=== PATIENT | female | born 1970 | race Caucasian/White ===

== ENCOUNTER 2019-12-10 21:47 | Emergency (ER) | payer OTHER, SELFPAY ==
[2019-12-10] VITALS (8 sets, daily range): BP systolic 141–160; BP diastolic 86–102; PULSE 88–99; RESP 15–21; TEMP 35.6–36.3; O2SAT 97–99
--- NOTE | ~2019-12-10 | XR_ITS ---
XR shoulder RT min 2V DATE: 12/10/2019 23:34 INDICATION: Anterior glenohumeral joint dislocation TECHNIQUE: 2 views COMPARISON: 12/10/2019 prereduction radiographs FINDINGS: There is reduction of the anterior dislocation at the right glenohumeral joint. No fracture is evident. IMPRESSION: Reduction of anterior glenohumeral joint dislocation Reviewed, dictated and finalized at location A.
--- NOTE | ~2019-12-10 | XR_ITS ---
XR shoulder RT min 2V DATE: 12/10/2019 22:37 INDICATION: Extreme shoulder pain, popping TECHNIQUE: 4 views COMPARISON: 09/12/2013 right shoulder 09/28/2013 right shoulder MRI examination FINDINGS: The humeral head is anteriorly dislocated in subcoracoid position. Normal alignment at the acromioclavicular joint, with degenerative changes. No apparent fracture. No apparent bone destruction or periosteal reaction. IMPRESSION: Anterior dislocation at right glenohumeral joint Reviewed, dictated and finalized at location A.
--- NOTE | 2019-12-10 22:10 | ED.UPPEXIN ---
HPI - Extremity Injury (Upper) General Chief Complaint: Extremity Injury, Upper Stated Complaint: fall Time Seen by Provider: 12/10/19 22:00 History of Present Illness HPI narrative: Patient is a 49-year-old female who presents ER with acute right shoulder pain. Patient was trying to swat a fly when she fell to pain in her shoulder and now is unable perform range of motion. She has some mild tingling in her right fifth digit. Has not had a dislocation previously. Did not fall or have any additional trauma to the shoulder. Pain is improved by not moving. Had some yogurt at 8 PM. Related Data Home Medications Medication Instructions Recorded Confirmed cetirizine 10 mg capsule 10 mg PO DAILY 04/10/19 cyclobenzaprine 10 mg tablet See Rx Instructions PO TID 04/10/19 ergocalciferol (vitamin D2) 1,250 1,250 mcg PO WEEKLY 04/10/19 mcg (50,000 unit) capsule hydroxychloroquine 200 mg tablet 200 mg PO BID 04/10/19 levonorgestrel 20 mcg/24 hours (5 1 device I-UTERINE ONCE 04/10/19 yrs) 52 mg intrauterine device meloxicam 15 mg tablet 15 mg PO DAILY 04/10/19 nortriptyline 10 mg capsule 10 mg PO DAILY 10/09/19 tramadol 50 mg tablet 50 mg PO Q6H PRN 10/09/19 valerian root 450 mg capsule 2,100 mg PO .QD cap 10/09/19 Allergies Allergy/AdvReac Type Severity Reaction Status Date / Time bee venom protein (honey bee) Allergy Unknown Unknown Verified 10/09/19 10:43 Review of Systems Constitutional: Constitutional: Denies chills and Denies fever(s) Musculoskeletal: Musculoskeletal: Denies back pain, Reports arthralgias and Denies joint swelling Neurologic: Denies focal weakness and Reports numbness PMFSH Surgical History Surgical History (Updated 04/10/19 @ 11:18 by Calli Christopher NP) Previous section (~2005) Social History Social History Smoking status: Never smoker Alcohol intake: current Gender identity (if verbalized by the patient): Female Exam Narrative: Exam Narrative: GENERAL: Well-appearing, well-nourished, and in no acute distress. HEAD: Normocephalic, atraumatic. ENT: Mucous membranes moist. CHEST: Clear to auscultation. No respiratory distress. HEART: Regular rate and rhythm. Normal peripheral pulses. EXTREMITIES: Deformity right shoulder, c/w dislocation. No clavicular/elbow/wrist pain on the right. Normal pulses. SKIN: Warm, dry, no rash. NEURO: Alert and oriented x3. PSYCH: Normal mood and affect. Course Vital Signs Vital signs: Vital Signs Temperature 96.0 F L 12/10/19 21:49 Pulse Rate 99 12/10/19 21:49 Respiratory Rate 21 H 12/10/19 21:49 Blood Pressure 147/102 H 12/10/19 21:49 Pulse Oximetry 98 12/10/19 21:49 Temperature 97.3 F L 12/10/19 23:36 Pulse Rate 89 12/10/19 23:54 Respiratory Rate 19 12/10/19 23:54 Blood Pressure 153/96 H 12/10/19 23:54 Pulse Oximetry 98 12/10/19 23:54 Procedures Orthopedic Joint Reduction Joint #1: Orthopedic Joint Reduction Date: 12/10/19 Orthopedic Joint Reduction Time: 23:02 Time Out Performed: Yes Side: right Joint Reduction Location: shoulder Analgesia: procedural sedation Pre-Procedure Neuro Vascular Exam: normal Local Anesthesia: none Shoulder Technique Used (if applicable): external rotation Post-reduction neuro exam: intact Post-reduction vascular: intact Post Reduction X-Ray Obtained: Yes Post Reduction X-Ray Results: reduced Splint Applied: Yes (shoulder immobilizer applied by the physician) Patient Tolerated Procedure: well Procedural Sedation Procedural Sedation #1: Procedural Sedation Date: 12/10/19 Procedural Sedation Time: 23:02 Procedure: right shoulder reduction Provider Performed: sedation and procedure Informed Consent Obtained: yes Equipment in Room: bag and mask, capnography, threat monitoring analyst, crash c
[2019-12-10] MEDS: MORPHINE SULFATE 4 MG/ML INJ IV PUSH (22:12)
--- NOTE | 2019-12-10 23:02 | PC.NURSE ---
manda morales gave 80mg of propofol at this time.
[2019-12-11 00:27] VITALS: BP 154/86; PULSE 79; RESP 19; TEMP 36.3; O2SAT 100
== END 2019-12-11 00:28 | disposition home or self-care (01) ==
PROVIDERS: Emergency Provider Emergency Medicine; PCP Family Medicine
DX: S43.014A Anterior dislocation of right humerus, initial encounter (principal); X50.9XXA Other and unspecified overexertion or strenuous movements or postures, initial encounter
CPT/HCPCS: 23650; 73030; 96374; 99285; A4565; J2270; J2704

== ENCOUNTER 2020-07-25 13:30 | Outpatient (CLI) | payer OTHER, SELFPAY ==
--- NOTE | 2020-07-25 14:09 | ECHO_ITS ---
Patient Info Name: Lesli Hughes Age: 49 years : 1970 Gender: Female Ht: 67 in Wt: 260 lbs BSA: 2.42 m2 HR: 95 bpm BP: 144 / 97 mmHg Technical Quality: Good Exam Date: 07/25/2020 2:21 PM Exam Location: [facility] Patient Status: Outpatient Admit Date: 07/25/2020 Staff Ordering Physician: Woody Cantu DO Top Icer: Rebecca Shepard RDCS Attending Provider: Woody Cantu DO Referring Physician: Pepe FELIX; Exam Type: CA echo doppler color flow Study Info Indications - palpitations Complete two-dimensional, color flow and Doppler transthoracic echocardiogram is performed. Summary 1. Complete two-dimensional, color flow and Doppler transthoracic echocardiogram is performed. 2. Left ventricular chamber dimension is normal. 3. Left ventricular systolic function is normal, estimated at 60-65%. 4. The left ventricular diastolic function is grade I diastolic dysfunction. 5. E/e' 7 is not elevated. 6. No pulmonary hypertension, estimated pulmonary arterial systolic pressure is 25 mmHg. Left Ventricle E/e' 7 is not elevated. Left ventricular chamber dimension is normal. Left ventricular systolic function is normal, estimated at 60-65%. The left ventricular diastolic function is grade I diastolic dysfunction. Right Ventricle Right ventricular chamber dimension is normal. Right ventricular systolic function is normal. Left Atria Left atrial chamber dimension is normal. Right Atria Right atrial chamber dimension is normal. Aortic Valve The aortic valve is trileaflet. There is no aortic valve stenosis. There is no aortic valve regurgitation. Pulmonic Valve There is no pulmonic regurgitation. Mitral Valve There is no mitral valve stenosis. There is no mitral valve regurgitation. Tricuspid Valve There is no tricuspid valve regurgitation. No pulmonary hypertension, estimated pulmonary arterial systolic pressure is 25 mmHg. Pericardium/Pleural There is no pericardial effusion. Inferior Vena Cava Normal inferior vena cava with >50% collapse upon inspiration consistent with normal right atrial pressure, 5 mmHg. Aorta The aortic root size at the sinus of Valsalva is normal. Left Ventricular Outflow Tract Name Value Normal LVOT 2D LVOT Diameter 2.0 cm LVOT Doppler LVOT Peak Gradient 3 mmHg LVOT Mean Gradient 2 mmHg LVOT VTI 17 cm LVOT VTI/AV VTI Ratio 0.9 LVOT Stroke Volume 52 ml LVOT CO 11.6 l/min LVOT CI 4.8 l/min/m2 Pulmonic Valve Name Value Normal PV Doppler PV Peak Gradient 5 mmHg Mitral Valve
== END 2020-07-25 13:31 | disposition home or self-care (01) ==
LOC: ANHCARD 13:32
PROVIDERS: PCP Nurse Practitioner Family; Visit Provider Internal Medicine Cardiovascular Disease
DX: R00.2 Palpitations (principal)
CPT/HCPCS: 93306

== ENCOUNTER 2020-07-28 08:58 | Outpatient (CLI) | payer OTHER, SELFPAY ==
--- NOTE | 2020-08-12 14:59 | WPDHOMESLEEP ---
Sleep Study - Home Unattended Date of Study: 07/28/20 Ordering Provider: Woody Cantu DO Interpreting Provider: Marleny Toro MD Home Sleep Study Type: Watch PAT Height: 1.7 m Weight: 117.934 kg Body Mass Index: 40.7 Neck Circumference (inches): 15.50 [place]: 14 Reason for Sleep Study Excessive daytime sleepiness, restless legs syndrome, palpitations at night History shows that she has sleep apnea and uses an oral device at night Sleep History Lesli Hughes is a 50 year old woman who has significant excessive daytime sleepiness.She frequently snores and occasionally stops breathing at night. She rarely has morning headaches. She never awakens feeling refreshed. She always has excessive daytime sleepiness and occasionally has memory or concentration problems. She began having heart palpitations 3 months ago and was diagnosed with PVCs using an event monitor. Her chest feels tight at times. There is a family history of sleep issues with her mother having sleep apnea which is untreated. Her management technician gives her medications for nighttime pain and restless legs syndrome. she rarely awakens from sleep feeling short of breath and rarely awakens with heartburn, belching or coughing. She occasionally has trouble sleeping with a cold. She rarely wakes up gasping for breath at night or having breathing problems at night witnessed by others. She does not notice her heart pounding or beating irregularly at night although she has noticed this during the day. She frequently falls asleep during the day. She frequently falls asleep in viral interiorly and this happens occasionally while driving. She does not have loss of muscle tone with strong emotion. she occasionally has daytime difficulties due to her excessive sleepiness. She does not feel paralyzed on waking or falling asleep. She rarely has vivid dreamlike scenes upon awakening or falling asleep. She does not feel afraid to go to sleep. She does not have nightmares. She does not remember dreams. She rarely has racing thoughts. She occasionally feels sad or depressed. She rarely has anxiety. She frequently has muscular tension. She frequently notices parts of her body jerking. She occasionally kicks at night. She frequently has crawling and aching feelings in her legs and leg pain during the night. She frequently has morning jaw pain, rarely grinds her teeth during sleep. She frequently is bothered by pain during the day. She rarely is awakened by pain at night. She frequently wakes up feeling stiff in the morning was sore achy muscles and pain in the neck and spine. She has headaches, palpitations, fatigue, memory problems and concentration difficulties. She is depressed. Normal bedtime is 10:00 p.m. falling asleep within 15-30 minutes waking 1 or 2 times at night to go to the bathroom and then is able to return to sleep within 5 minutes. She wakes the morning at 5:30 a.m.. She estimates getting 6 8 hours of sleep at night. On the weekends she goes to bed by 11:00 p.m. and wakes up by 9:00 a.m.. She hits the snooze button for about 30 minutes. She often naps on the weekends. She occasionally feels refreshed after short 10 or 15 minutes nap. She is usually drowsy in the morning for 2 hours sometimes longer. She feels better in the late morning compared to other times of day. Habits: Never smoked tobacco. Caffeine 2 servings daily. Alcohol 1 time per week. No recreational drugs. [facility] Past Medical History Medical History (Updated 08/12/20 @ 15:30 by Marleny Toro MD) Depression Dislocation of right shoulder joint (~12/10/19) Fibromyalgia Follows with rheumatology at [facility] Insulin resistance Ischemic colitis (~2014) MCTD (mixed connective tissue disease) Scoliosis Sleep apnea uses mouth device Systemic lupus Tension headache Vitamin D deficiency Surgical History Surgical History Previous
[2020-08-12 15:18] VITALS: BMI 40.7
== END 2020-07-28 08:59 | disposition home or self-care (01) ==
LOC: ANHCSM 08:59
PROVIDERS: PCP Nurse Practitioner Family; Visit Provider Internal Medicine Cardiovascular Disease
DX: G47.30 Sleep apnea, unspecified (principal)
CPT/HCPCS: 95800

== ENCOUNTER → 2020-08-29 07:27 | Outpatient (CLI) | payer OTHER, SELFPAY ==
[2020-08-29 19:22] LABS: SARS-CoV-2 RNA PCR Negative
== END ==
PROVIDERS: PCP Nurse Practitioner Family; Visit Provider Internal Medicine Gastroenterology
DX: Z01.812 Encounter for preprocedural laboratory examination (principal); Z20.822 Contact with and (suspected) exposure to COVID-19
CPT/HCPCS: C9803; U0003; U0005

== ENCOUNTER 2020-09-01 00:44 | Day surgery (SDC) | payer OTHER, SELFPAY ==
[2020-08-25 13:54] VITALS: BMI 40.7
[2020-09-01 06:42] VITALS: BP 147/93; PULSE 89; RESP 16; TEMP 36.3; O2SAT 97; BMI 40.7
--- NOTE | 2020-09-01 06:47 | WPDANESEPPF ---
Anes - Initial Pre Proc Eval Procedure: Operation Date: 09/01/20 07:30 Proposed Procedures p Screening Colonoscopy - Sung Addison MD Date/Time: 09/01/20 06:47 Surgeon: Sung Addison MD Pre Op Diagnosis: family hx of colon ca, neoplasm screening Patient Data Age: 50 Gender: F Height: 5 ft 7 in Weight: 118 kg Last Vital Signs Temp 36.3 C L 09/01/20 06:42 Pulse 89 09/01/20 06:42 Resp 16 09/01/20 06:42 BP 147/93 H 09/01/20 06:42 Pulse Ox 97 09/01/20 06:42 Allergies Allergy/AdvReac Type Severity Reaction Status Date / Time bee venom protein (honey bee) Allergy Severe Anaphylactic Verified 09/01/20 06:40 Shock Home Medications Medication Instructions Recorded Confirmed Type hydroxychloroquine 200 mg tablet 200 mg PO BID 04/10/19 08/25/20 History levonorgestrel 20 mcg/24 hours (6 1 device I-UTERINE ONCE 04/10/19 08/25/20 History yrs) 52 mg intrauterine device meloxicam 15 mg tablet 15 mg PO DAILY 04/10/19 08/25/20 History valerian root 450 mg capsule 900 mg PO .QD cap 10/09/19 08/25/20 History cyclobenzaprine 10 mg tablet 10 mg PO HS tablet 12/20/19 08/25/20 History levocetirizine 5 mg tablet 5 mg PO DAILY 12/20/19 08/25/20 History tramadol 50 mg tablet 50 mg PO HS tablet 12/20/19 08/25/20 History ergocalciferol (vitamin D2) 50 mcg 50 mcg PO DAILY 05/28/20 08/25/20 History (2,000 unit) tablet sod picosulf 10 mg-magnes 3.5 160 ml PO BID #160 ml 07/03/20 07/09/20 Rx gram-citric 12 gram/160 mL oral solution metformin 500 mg tablet,extended 500 mg PO BID 07/09/20 08/25/20 History release 24hr oxybutynin chloride 5 mg tablet 2.5 mg PO BID tablet 07/09/20 08/25/20 History epinephrine 0.3 mg/0.3 mL See Rx Instructions .ROUTE 07/15/20 08/25/20 Rx injection, auto-injector .COMPLEX #2 ea duloxetine 60 mg PO DAILY 08/25/20 08/25/20 History valerian root 1,350 mg PO QPM 08/25/20 08/25/20 History Patient hx anesthesia problems: none Family hx anesthesia problems: none PMFSH Past Medical History Medical History Depression Dislocation of right shoulder joint (~12/10/19) Fibromyalgia Follows with rheumatology at [facility] Insulin resistance Ischemic colitis (~2014) MCTD (mixed connective tissue disease) Scoliosis Sleep apnea uses mouth device Systemic lupus Tension headache Vitamin D deficiency Surgical History Surgical History Previous section (~2005) Family History Family History Father Family history of obesity Hypertension Carcinoma of colon Mother Family history of osteoporosis Depression Hypertension Family history of Alzheimer's disease Other Family history of malignant neoplasm of uterus Family history of schizophrenia Social History Social History Smoking status: Never smoker Alcohol intake: current Drinks per week: 1 Alcohol use details: DRINKS Substance use: never Substance use type: does not use Living arrangements: with family Gender identity (if verbalized by the patient): Female Anes - Eval Final PreProcedure Day of Procedure 09/01/20 06:47 Patient weight: morbidly obese Heart: regular rate and rhythm Lungs: clear to auscultation Airway: Mallampati scale class II Neurological: alert and oriented Last oral intake: >/= 8 hours ASA classification: III Emergent: no Anesthetic plan: proceed Anesthesia type and monitoring: general GIVS and standard monitoring Informed Consent: The patient's anesthetic plan and its attendant risks and benefits were discussed with the patient/family/POA. Questions were solicited and answers provided to the satisfaction of the patient/family/POA.
[2020-09-01] MEDS: LACTATED RINGERS 1,000 ML 150 ML IV CONT (06:48)
--- NOTE | 2020-09-01 07:32 | PM.HPGS ---
History of Present Illness History of Present Illness Consent: Risks, benefits, and alternatives have been discussed and questions answered. Patient agrees to proceed with procedure. Chief complaint: family hx of colon ca, neoplasm screening Narrative: Lesli Hughes is a 50 year old female with last colonoscopy 6 years ago, father had colon cancer at 48yo Review of Systems Constitutional: Constitutional: Denies headache(s) and Denies weakness Eyes: Eyes: Denies blurry vision ENT: Reports Normal hearing present, Denies headache(s) and Denies neck pain Cardiovascular: Cardiovascular: Denies chest pain and Denies dyspnea Respiratory: Respiratory: Denies dyspnea Gastrointestinal: Gastrointestinal: Reports no additional gastrointestinal complaints Genitourinary: Genitourinary: Denies dysuria Musculoskeletal: Musculoskeletal: Denies neck pain Integumentary/Breasts: Skin/Breast: Denies dry skin Neurologic: Reports Normal hearing present, Denies headache(s) and Denies weakness Psychiatric: Psychiatric: Denies anxiety Endocrine: Endocrine: Denies change in body appearance Hematologic/Lymphatic: Hematologic/Lymphatic: Denies easy bleeding Allergic/Immunologic: Allergic/Immunologic: Denies urticaria [facility] Past Medical History Medical History (Updated 09/01/20 @ 07:33 by Sung Addison MD) Depression Dislocation of right shoulder joint (~12/10/19) Family history of colon cancer in father Fibromyalgia Follows with rheumatology at [facility] Insulin resistance Ischemic colitis (~2014) MCTD (mixed connective tissue disease) Scoliosis Sleep apnea uses mouth device Systemic lupus Tension headache Vitamin D deficiency Surgical History Surgical History Previous section (~2005) Family History Family History Father Family history of obesity Hypertension Carcinoma of colon Mother Family history of osteoporosis Depression Hypertension Family history of Alzheimer's disease Other Family history of malignant neoplasm of uterus Family history of schizophrenia Social History Social History Smoking status: Never smoker Alcohol intake: current Drinks per week: 1 Alcohol use details: DRINKS Substance use: never Substance use type: does not use Living arrangements: with family Gender identity (if verbalized by the patient): Female Meds Home Medications and Allergies Home Medications Medication Instructions Recorded Confirmed Type hydroxychloroquine 200 mg tablet 200 mg PO BID 04/10/19 08/25/20 History levonorgestrel 20 mcg/24 hours (6 1 device I-UTERINE ONCE 04/10/19 08/25/20 History yrs) 52 mg intrauterine device meloxicam 15 mg tablet 15 mg PO DAILY 04/10/19 08/25/20 History valerian root 450 mg capsule 900 mg PO .QD cap 10/09/19 08/25/20 History cyclobenzaprine 10 mg tablet 10 mg PO HS tablet 12/20/19 08/25/20 History levocetirizine 5 mg tablet 5 mg PO DAILY 12/20/19 08/25/20 History tramadol 50 mg tablet 50 mg PO HS tablet 12/20/19 08/25/20 History ergocalciferol (vitamin D2) 50 mcg 50 mcg PO DAILY 05/28/20 08/25/20 History (2,000 unit) tablet sod picosulf 10 mg-magnes 3.5 160 ml PO BID #160 ml 07/03/20 07/09/20 Rx gram-citric 12 gram/160 mL oral solution metformin 500 mg tablet,extended 500 mg PO BID 07/09/20 08/25/20 History release 24hr oxybutynin chloride 5 mg tablet 2.5 mg PO BID tablet 07/09/20 08/25/20 History epinephrine 0.3 mg/0.3 mL See Rx Instructions .ROUTE 07/15/20 08/25/20 Rx injection, auto-injector .COMPLEX #2 ea duloxetine 60 mg PO DAILY 08/25/20 08/25/20 History valerian root 1,350 mg PO QPM 08/25/20 08/25/20 History Allergies Allergy/AdvReac Type Severity Reaction Status Date / Time bee venom protein (honey bee) Allergy Severe Anaphylactic Verifi
[2020-09-01 07:56] VITALS: BP 123/78; PULSE 88; RESP 27; O2SAT 96
[2020-09-01 08:06] VITALS: BP 128/85; PULSE 82; RESP 18; O2SAT 95
[2020-09-01 08:16] VITALS: BP 131/86; PULSE 82; RESP 23; O2SAT 100
== END 2020-09-01 08:28 | disposition home or self-care (01) ==
PROVIDERS: PCP Nurse Practitioner Family; Visit Provider Internal Medicine Gastroenterology
PROC: 0DJD8ZZ Inspection of Lower Intestinal Tract, Via Natural or Artificial Opening Endoscopic (ICD-10-PCS; CPT 45378; principal; 2020-09-01 07:30)
DX: Z12.11 Encounter for screening for malignant neoplasm of colon (principal); Z80.0 Family history of malignant neoplasm of digestive organs; K57.30 Diverticulosis of large intestine without perforation or abscess without bleeding; K64.4 Residual hemorrhoidal skin tags; E55.9 Vitamin D deficiency, unspecified; E88.81 Metabolic syndrome and other insulin resistance; M35.1 Other overlap syndromes; M41.9 Scoliosis, unspecified; M79.7 Fibromyalgia; M32.9 Systemic lupus erythematosus, unspecified; G47.30 Sleep apnea, unspecified; F32.9 Major depressive disorder, single episode, unspecified
CPT/HCPCS: 45378; C9803; J2704; J7120; U0003; U0005

== ENCOUNTER 2020-12-17 15:54 | Outpatient (CLI) | payer OTHER, SELFPAY ==
--- NOTE | 2020-12-17 | ECG_ITS ---
Measurements Intervals [place] Rate: 88 P: 55 ND: 145 QRS: 10 QRSD: 94 T: 29 QT: 370 QTc: 448 Interpretive Statements SINUS RHYTHM LOW QRS VOLTAGE IN PRECORDIAL LEADS BASELINE WANDER- II, III, AVF, V1-V2 BORDERLINE ECG Electronically Signed On 12-17-2020 20:50:11 CDT by Woody Cantu D.O.
--- NOTE | ~2020-12-17 | XR_ITS ---
EXAMINATION: XR chest 2V 12/17/2020 16:51 INDICATION: Melanoma. Preop. PROCEDURE: 2 view chest COMPARISON: No prior studies for comparison. FINDINGS: The lungs are clear. The cardiomediastinal silhouette is within normal limits. There are no pleural effusions. There is no pneumothorax suspected. IMPRESSION: 1: NO ACUTE CARDIOPULMONARY DISEASE. Reviewed, dictated and finalized at location A.
[2020-12-17 17:04] LABS: Basophils Absolute Auto 0.1 K/mm3 (0.0-0.1); Basophils Percent Auto 1.1 % (0.2-1.2); Eosinophils Absolute Auto 0.6 K/mm3 (0-0.3); Eosinophils Percent Auto 7.5 % (0-4.4); Hematocrit 41.9 % (37.0-47.0); Hemoglobin 14.6 g/dL (12.0-15.0); Immature Granulocyte Absolute 0.02 K/mm3 (0.00-0.031); Immature Granulocyte Percent A 0.2 % (0-0.5); Lymphocytes Absolute Auto 2.12 K/mm3 (0.9-3.2); Lymphocytes Percent Auto 26.4 % (18.3-44.2); Mean Corpuscular HGB Conc 34.8 g/dl (32-36); Mean Corpuscular Hemoglobin 30.4 pg (26-34); Mean Corpuscular Volume 87.3 fl (80-100); Mean Platelet Volume 9.7 fl (7.4-10.4); Monocytes Absolute Auto 0.6 K/mm3 (0.1-0.6); Monocytes Percent Auto 7.1 % (2.6-8.5); Neutrophils Absolute Auto 4.6 K/mm3 (1.3-6.7); Neutrophils Percent Auto 57.7 % (45.5-73.1); Platelet Count Result 449 k/mm3 (150-375); Red Cell Distribution Width 12.5 % (11.5-14.5)
[2020-12-17 17:14] LABS: Alanine Aminotransferase 44 U/L (4-35); Albumin Level 4.7 g/dL (3.5-5.1); Alkaline Phosphatase 48 U/L (38-126); Anion Gap 9 mmol/L (8-16); Aspartate Amino Transferase 48 U/L (14-36); Bilirubin,Total 1.4 mg/dL (0.2-1.3); Blood Urea Nitrogen 14 mg/dL (7-17); Calcium 9.6 mg/dL (8.4-10.2); Carbon Dioxide 27 mmol/L (22-30); Chloride 103 mmol/L (98-107); Estimated Glomerular Filt Rate > 60; Glucose 97 mg/dL (65-110); Potassium 4.2 mmol/L (3.4-5.0); Sodium 139 mmol/L (137-145)
== END 2020-12-17 15:55 | disposition home or self-care (01) ==
LOC: ANHLAB 15:57
PROVIDERS: PCP Nurse Practitioner Family; Visit Provider Surgery
DX: C43.59 Malignant melanoma of other part of trunk (principal)
CPT/HCPCS: 36415; 71046; 80053; 85025; 93005

== ENCOUNTER → 2021-03-06 08:43 | Outpatient (CLI) | payer OTHER, SELFPAY ==
--- NOTE | ~2021-03-06 | MM_ITS ---
EXAMINATION: MM screening velvet BI w hamzah HISTORY: Screening mammogram TECHNIQUE: Craniocaudal and mediolateral oblique 3-D tomosynthesis images were obtained and synthetic 2-D images were generated. CAD analysis was submitted and interpreted. COMPARISON: 09/08/2017, 11/2014, 08/14/2012 bilateral screening mammogram examinations BREAST PARENCHYMAL COMPOSITION: The breasts are almost entirely fatty. FINDINGS: There is no evidence of suspicious mass, calcification, or architectural distortion to sugg est malignancy in either breast. There has been no suspicious interval change. IMPRESSION: 1. No mammographic evidence of malignancy. 2. Recommend routine screening mammography in one year. BI-RADS Category 1: Negative Reviewed, dictated and finalized at location A. ESSOR OF COMMUNICATION AND WRITING
== END ==
PROVIDERS: Visit Provider Nurse Practitioner
DX: Z12.31 Encounter for screening mammogram for malignant neoplasm of breast (principal)
CPT/HCPCS: 77063; 77067

== ENCOUNTER → 2021-09-11 07:14 | Outpatient (CLI) | payer OTHER, SELFPAY ==
--- NOTE | ~2021-09-11 | XR_ITS ---
EXAMINATION: XR chest 2V 09/11/2021 07:33 INDICATION: Melanoma. PROCEDURE: 2 view chest COMPARISON: 12/17/2020 FINDINGS: The lungs are clear. The cardiomediastinal silhouette is within normal limits. There are no pleural effusions. There is no pneumothorax suspected. IMPRESSION: 1: NO ACUTE CARDIOPULMONARY DISEASE. Reviewed, dictated and finalized at location A.
== END ==
PROVIDERS: PCP Nurse Practitioner; Visit Provider Surgery
DX: C43.59 Malignant melanoma of other part of trunk (principal)
CPT/HCPCS: 71046

== ENCOUNTER 2022-03-24 15:26 | Outpatient (CLI) | payer OTHER, SELFPAY ==
--- NOTE | ~2022-03-24 | XR_ITS ---
EXAMINATION: XR chest 2V DATE: 03/24/2022 15:47 INDICATION: Melanoma TECHNIQUE: Frontal and lateral views of the chest are obtained COMPARISON: 09/11/2021 FINDINGS: The lungs are free of acute opacities. No pleural effusion or pneumothorax. The cardiomedia stinal silhouette is normal. There is mild thoracic spondylosis. IMPRESSION: 1. No acute cardiopulmonary abnormality. Reviewed, dictated and finalized at location A. WELL DRILLING MANAGER
== END 2022-03-24 15:27 | disposition home or self-care (01) ==
PROVIDERS: PCP Nurse Practitioner Family; Visit Provider Surgery
DX: C43.59 Malignant melanoma of other part of trunk (principal)
CPT/HCPCS: 71046

== ENCOUNTER → 2022-06-11 07:11 | Outpatient (CLI) | payer OTHER, SELFPAY ==
--- NOTE | ~2022-06-11 | MM_ITS ---
EXAMINATION: MM screening velvet BI w hamzah HISTORY: Screening TECHNIQUE: Craniocaudal and mediolateral oblique 3-D tomosynthesis images were obtained and synthetic 2-D images were generated. CAD analysis was submitted and interpreted. COMPARISON: Comparison to multiple prior studies sequentially, with oldest reviewed study dated 09/2012. BREAST PARENCHYMAL COMPOSITION: There are scattered areas of fibroglandular density. FINDINGS: There is no evidence of suspicious mass, calcification, or architectural distortion to sugg est malignancy in either breast. There has been no suspicious interval change. IMPRESSION: 1. No mammographic evidence of malignancy. 2. Recommend routine screening mammography in one year. BI-RADS Category 1: Negative Reviewed, dictated and finalized at location B. ING NEWS ANCHOR
== END ==
PROVIDERS: PCP Nurse Practitioner; Visit Provider Nurse Practitioner
DX: Z12.31 Encounter for screening mammogram for malignant neoplasm of breast (principal)
CPT/HCPCS: 77063; 77067

== ENCOUNTER 2022-08-23 15:58 | Outpatient (CLI) | payer OTHER, SELFPAY ==
--- NOTE | ~2022-08-23 | XR_ITS ---
XR chest 2V 08/23/2022 16:20 Indication: Melanoma of the back Procedure: PA and lateral views of the chest Comparison: 03/24/2022 Findings: Heart size is normal. No focal air space disease, pulmonary edema, pleural effusion or susp ected pneumothorax. There is mild scoliosis. Impression: 1: No acute cardiopulmonary disease. Reviewed, dictated and finalized at location B. Impression: 1: No acute cardiopulmonary disease.
== END 2022-08-23 15:59 | disposition home or self-care (01) ==
LOC: ANHIMG 16:04
PROVIDERS: PCP Nurse Practitioner; Visit Provider Surgery
DX: C43.59 Malignant melanoma of other part of trunk (principal)
CPT/HCPCS: 71046

== ENCOUNTER 2023-03-24 09:09 | Outpatient (CLI) | payer OTHER, SELFPAY ==
--- NOTE | ~2023-03-24 | XR_ITS ---
Clinical Indication: Melanoma PA and lateral views of the chest: Comparison: 08/23/2022 Findings: The lungs are clear, without evidence of focal consolidation or pleural effusion. Cardiome diastinal silhouette is within normal limits. Bones and soft tissues are unremarkable. Impression: Normal chest. Reviewed, dictated and finalized at location . ING ASSISTANT Impression: Normal chest.
== END 2023-03-24 09:10 | disposition home or self-care (01) ==
PROVIDERS: PCP Nurse Practitioner; Visit Provider Surgery
DX: C43.59 Malignant melanoma of other part of trunk (principal)
CPT/HCPCS: 71046

== ENCOUNTER 2024-03-01 11:23 | Outpatient (CLI) | payer OTHER, SELFPAY ==
--- NOTE | ~2024-03-01 | XR_ITS ---
Clinical Indication: Melanoma PA and lateral views of the chest: Comparison: 03/24/2023 Findings: The lungs are clear, without evidence of focal consolidation or pleural effusion. Cardiome diastinal silhouette is within normal limits. Bones and soft tissues are unremarkable. Impression: Normal chest. Reviewed, dictated and finalized at location . F SCIENTIST Impression: Normal chest.
== END 2024-03-01 11:24 | disposition home or self-care (01) ==
PROVIDERS: PCP Nurse Practitioner Family; Visit Provider Surgery
DX: C43.59 Malignant melanoma of other part of trunk (principal)
CPT/HCPCS: 71046

== ENCOUNTER 2024-04-26 15:30 | Outpatient (CLI) | payer OTHER, SELFPAY ==
--- NOTE | ~2024-04-26 | MM_ITS ---
EXAMINATION: MM screening velvet BI w hamzah HISTORY: Screening TECHNIQUE: Craniocaudal and mediolateral oblique 3-D tomosynthesis images were obtained and synthetic 2-D images were generated. CAD analysis was submitted and interpreted. COMPARISON: Comparison to multiple prior studies sequentially, with oldest reviewed study dated 07/2014. BREAST PARENCHYMAL COMPOSITION: Not Dense: The breasts are almost entirely fatty. FINDINGS: There is no evidence of suspicious mass, calcification, or architectural distortion to sugg est malignancy in either breast. There has been no suspicious interval change. IMPRESSION: 1. No mammographic evidence of malignancy. 2. Recommend routine screening mammography in one year. BI-RADS Category 1: Negative Reviewed, dictated and finalized at location A. S PULVERIZER EQUIPMENT OPERATOR
== END 2024-04-26 15:31 | disposition home or self-care (01) ==
PROVIDERS: PCP Nurse Practitioner Women's Health; Visit Provider Nurse Practitioner Women's Health
DX: Z12.31 Encounter for screening mammogram for malignant neoplasm of breast (principal)
CPT/HCPCS: 77063; 77067

== ENCOUNTER 2025-03-18 08:59 | Outpatient (CLI) | payer OTHER, SELFPAY ==
--- NOTE | ~2025-03-18 | XR_ITS ---
EXAMINATION: XR chest 2V, 03/18/2025 9:18 EQUIPMENT MAINTENANCE ENGINEER HISTORY: melanoma of back ANNUAL FOLLOW UP COMPARISON: No comparisons available. Technique: 2 views obtained. Findings: The lungs are clear, no effusion. No pneumothorax. Heart is normal size. Mediastinal and hilar contours are within normal limits. Bony thorax no acute abnormality. Impression: No acute cardiopulmonary abnormality. Reviewed, dictated and finalized at location P. PMENT MAINTENANCE ENGINEER Impression: No acute cardiopulmonary abnormality.
== END 2025-03-18 09:00 | disposition home or self-care (01) ==
PROVIDERS: PCP Nurse Practitioner Family; Visit Provider Surgery
DX: C43.59 Malignant melanoma of other part of trunk (principal)
CPT/HCPCS: 71046